=== PATIENT | female | born 1940 | race Caucasian/White ===

== ENCOUNTER 2017-06-23 10:10 | Outpatient (CLI) | payer MEDICARE, OTHER | END 2017-06-23 10:11 | disposition home or self-care (01) | LOC: LAB 10:10 | PROVIDERS: ATTEND Obstetrics & Gynecology | DX: R63.5 Abnormal weight gain (principal) | CPT/HCPCS: 36415; 82626 ==

== ENCOUNTER 2017-07-04 12:00 | Outpatient (CLI) | payer MEDICARE, OTHER ==
[2017-07-04 12:41] LABS: BILIRUBIN,URINE NEGATIVE (NEGATIVE); GLUCOSE, URINE (UA) NEGATIVE (NEGATIVE); KETONES,URINE (UA) TRACE mg/dL (NEGATIVE); LEUKOCYTE ESTERASE, URINE SMALL (NEGATIVE); NITRITE,URINE NEGATIVE (NEGATIVE); OCCULT BLOOD,URINE MODERATE (NEGATIVE); PROTEIN,URINE NEGATIVE (NEGATIVE); UROBILINOGEN,URINE 0.2 (NORMAL) E.U./dL (NORMAL)
[2017-07-04 12:46] LABS: CLARITY,URINE CLOUDY (CLEAR)
== END 2017-07-04 12:01 | disposition home or self-care (01) ==
LOC: LAB 12:00
PROVIDERS: ATTEND Obstetrics & Gynecology
DX: R31.21 Asymptomatic microscopic hematuria (principal)
CPT/HCPCS: 81003

== ENCOUNTER 2017-09-02 14:53 | Outpatient (CLI) | payer MEDICARE, OTHER ==
--- NOTE | 2017-09-05 08:15 | DEXA Report ---
Procedure Date: 09/02/2017 Accession Number: [id number] / [id number] Procedure: DEX - Dexa Spine and/or Hip CPT Code: FULL RESULT: EXAM: Dexa Spine and/or Hip DATE: 09/02/2017 3:17 PM CLINICAL HISTORY: OTHER SPECIFIED MENOPAUSAL AND PERIMENOPAUSAL DISO TECHNIQUE: Dual energy x-ray absorptiometry (DXA) was performed on a Fwd: Power System. Regions measured are the AP Spine, femoral neck, and if needed forearm. COMPARISON: None. In accordance with the International Society for Clinical Densitometry (ISCD) guidelines, data from previous exams may be reanalyzed using current recommendations and techniques. This is done to allow a more accurate basis for comparison with the current study. FINDINGS: The data for the lumbar spine is as follows: BMD (g/cm/cm) T-SCORE Z-SCORE REGION L1 1.190 0.5 2.4 L2 1.262 0.5 2.4 L3 L4 TOTAL 1.227 0.5 2.4 NOTE: All evaluable vertebrae are used for classification. L3 and L4 excluded, due to extensive degenerative endplate sclerosis. The data for the hip is as follows: BMD (g/cm/cm) T-SCORE Z-SCORE REGION Neck 0.950 -0.6 1.4 TOTAL 0.956 -0.4 1.4 NOTE: The femoral neck or total proximal femur, whichever is lowest, is used for classification. IMPRESSION: THE WHO CLASSIFICATION BASED ON THE INTERNATIONAL REFERENCE STANDARD IS NORMAL. THE FRACTURE RISK IS NOT INCREASED. RECOMMENDATION: Patients with diagnosis of osteoporosis or osteopenia should have regular bone mineral density assessment. For those eligible for Medicare, routine testing is allowed once every 2 years. Testing frequency can be increased for patients who have rapidly progressing disease or for those who are receiving medical therapy to restore bone mass. COMMENT: World Health Organization (WHO) definitions for osteoporosis and osteopenia: NORMAL BMD: T-score at -1.0 or higher, fracture risk is low OSTEOPENIA BMD: T-score between -1.0 and -2.5, fracture risk is increased. OSTEOPOROSIS BMD: T-score at -2.5 or lower, fracture risk is high. National Osteoporosis Foundation recommends: 1. Obtain adequate dietary calcium (at least 1200 mg per day) and vitamin D (400-800 international units per day). 2. Participate, as appropriate, in regular weightbearing and muscle-strengthening exercise. 3. Avoid tobacco use and reduce alcohol and caffeine intake. 4. For more detailed information see the website at www.NOF.org.
== END 2017-09-02 14:54 | disposition home or self-care (01) ==
LOC: DI 14:53
PROVIDERS: ATTEND Family Medicine
DX: N95.8 Other specified menopausal and perimenopausal disorders (principal)
CPT/HCPCS: 77080

== ENCOUNTER 2017-11-30 15:22 | Outpatient (CLI) | payer MEDICARE, OTHER ==
--- NOTE | 2017-11-30 17:13 | XRAY Report ---
Reason: RIGHT HAND AND FINDER PAIN S/P FALL, SCOLIOSIS Procedure Date: 11/30/2017 Accession Number: [id number] / [id number] Procedure: XR - Hand 3 View RT CPT Code: FULL RESULT: EXAM: RIGHT HAND RADIOGRAPHY EXAM DATE: 11/30/2017 03:37 PM. CLINICAL HISTORY: Right hand and finder pain status post fall, scoliosis. COMPARISON: None. TECHNIQUE: 3 views. FINDINGS: Bones: There is an amorphous calcific density about the lateral aspect of the fifth proximal interphalangeal joint. While there is no cristal fracture dislocation, this may represent a donor fragment from prior injury. Joints: Degenerative changes are seen about the first through third distal interphalangeal joints. Soft Tissues: Normal. No soft tissue swelling. IMPRESSION: Calcific density with well-rounded borders near the fifth proximal interphalangeal joint may represent a partially resorbed donor fragment. If this corresponds to the patient's area of pain, consider the finding posttraumatic. RADIA
--- NOTE | 2017-11-30 17:13 | XRAY Report ---
Reason: RIGHT HAND AND FINDER PAIN S/P FALL, SCOLIOSIS Procedure Date: 11/30/2017 Accession Number: [id number] / [id number] Procedure: XR - Lumbar Spine 2 View CPT Code: FULL RESULT: EXAM: LUMBOSACRAL SPINE RADIOGRAPHY EXAM DATE: 11/30/2017 03:36 PM. CLINICAL HISTORY: Right hand and finger pain status post fall, scoliosis. COMPARISONS: None. TECHNIQUE: 2 views. FINDINGS: Alignment: Dextroconvex lumbar scoliosis. Bones: Five mid-kwz-zaxrjtk lumbar vertebral bodies are present. No fractures or bone lesions. Disks: Degenerative disk disease follows the curvature of the lumbar spine with disk space reduction predominately on the left side of the vertebral bodies. Facets: Facet degenerative disease is more pronounced in the lower lumbar spine, L4 and L5. Sacroiliac Joints: Unremarkable. Soft Tissues: Normal. The visualized bowel gas pattern is normal. IMPRESSION: At least moderate dextroconvex scoliosis. RADIA
== END 2017-11-30 15:23 | disposition home or self-care (01) ==
LOC: DI 15:22
PROVIDERS: ATTEND Family Medicine
DX: M41.86 Other forms of scoliosis, lumbar region (principal); M79.641 Pain in right hand
CPT/HCPCS: 72100

== ENCOUNTER 2018-04-25 12:24 | Outpatient (CLI) | payer MEDICARE, OTHER ==
[2018-04-25 12:54] LABS: BILIRUBIN,URINE NEGATIVE (NEGATIVE); GLUCOSE, URINE (UA) NEGATIVE (NEGATIVE); KETONES,URINE (UA) NEGATIVE (NEGATIVE); LEUKOCYTE ESTERASE, URINE TRACE (NEGATIVE); NITRITE,URINE NEGATIVE (NEGATIVE); OCCULT BLOOD,URINE NEGATIVE (NEGATIVE); PROTEIN,URINE NEGATIVE (NEGATIVE); UROBILINOGEN,URINE 0.2 (NORMAL) E.U./dL (NORMAL)
[2018-04-25 13:16] LABS: CLARITY,URINE HAZY (CLEAR)
[2018-04-25 13:17] LABS: AMORPHOUS SEDIMENT,UR Few /LPF; BACTERIA,URINE Rare /HPF (None Seen); RBC,URINE 0-5 /HPF (0-5); SQUAMOUS EPITHELIAL CELL,UR RARE Squamous (<= Few)
== END 2018-04-25 12:25 | disposition home or self-care (01) ==
LOC: LAB 12:24
PROVIDERS: ATTEND Family Medicine
DX: N39.0 Urinary tract infection, site not specified (principal)
CPT/HCPCS: 81001

== ENCOUNTER 2018-10-13 21:05 | Outpatient (CLI) | payer MEDICARE, OTHER ==
--- NOTE | 2018-10-13 21:56 | Ultrasound Report ---
Reason: LOWER EXTREMITY EDEMA, LEFT Procedure Date: 10/13/2018 Accession Number: [id number] / [id number] Procedure: US - Duplex Ext Veins Left CPT Code: FULL RESULT: EXAM: LEFT LOWER EXTREMITY VENOUS ULTRASOUND EXAM DATE: 10/13/2018 09:19 PM. CLINICAL HISTORY: Left lower extremity edema COMPARISON: None. TECHNIQUE: Real-time sonographic vascular imaging was performed by the childcare aide through the lower extremity utilizing both color-flow and Doppler spectral analysis. Multiple customer service representative teacher static images were saved for review. FINDINGS: Common Femoral Vein (CFV): Normal. CFV-GSV Junction: Normal. Profunda Femoral Vein (PFV): Normal. Femoral Vein (FV) Prox: Normal. Femoral Vein (FV) Mid: Normal. Femoral Vein (FV) Dist: Normal. Popliteal Vein: Normal. Posterior Tibial Veins: Normal. Peroneal Veins: Normal. Other: None. IMPRESSION: No evidence for deep venous thrombosis. DEL The call report notification system was initiated by Dr. Laura Dale at 09:54 PM on 10/13/2018.
== END 2018-10-13 21:06 | disposition home or self-care (01) ==
LOC: DI 21:05
PROVIDERS: ATTEND Nurse Practitioner Family
DX: R60.0 Localized edema (principal)

== ENCOUNTER 2018-10-14 10:07 | Outpatient (CLI) | payer MEDICARE, OTHER ==
[2018-10-14 10:38] LABS: BASOPHILS % (AUTO) 0.8 %; EOSINOPHILS # (AUTO) 0.1 10^3/uL (0.0-0.7); EOSINOPHILS % (AUTO) 2.4 %; HGB - HEMOGLOBIN 14.1 g/dL (12.0-16.0); LYMPHOCYTES # (AUTO) 1.3 10^3/uL (1.5-3.5); LYMPHOCYTES % (AUTO) 24.2 %; MEAN CORPUSCULAR HEMOGLOBIN 29.7 pg (27.0-31.0); MEAN CORPUSCULAR HGB CONC 32.5 g/dL (32.0-36.0); MEAN CORPUSCULAR VOLUME 91.6 fL (81.0-99.0); MEAN PLATELET VOLUME 10.8 fL (7.9-10.8); MONOCYTES # (AUTO) 0.4 10^3/uL (0.0-1.0); MONOCYTES % (AUTO) 7.5 %; NEUTROPHILS # (AUTO) 3.5 10^3/uL (1.5-6.6); NEUTROPHILS % (AUTO) 64.7 %; PLT - PLATELET COUNT 170 10^3/uL (130-450); RED BLOOD COUNT 4.74 10^6/uL (4.20-5.40); RED CELL DISTRIBUTION WIDTH 12.6 % (12.0-15.0); WHITE BLOOD COUNT 5.3 x10^3/uL (4.8-10.8)
[2018-10-14 10:52] LABS: ALBUMIN 4.3 g/dL (3.2-5.5); ALBUMIN/GLOBULIN RATIO 1.5 (1.0-2.2); ALKALINE PHOSPHATASE 52 IU/L (42-121); ALT ALANINE AMINOTRANSFERASE 19 IU/L (10-60); AST ASPARTATE AMINOTRANSFERASE 19 IU/L (10-42); BILIRUBIN,TOTAL 1.1 mg/dL (0.2-1.0); BUN - BLOOD UREA NITROGEN 16 mg/dL (6-20); CALCIUM 9.8 mg/dL (8.5-10.3); CARBON DIOXIDE - CO2 26 mmol/L (21-32); CHLORIDE 108 mmol/L (101-111); CHOL/HDL RATIO 2.5 (<4.4); CHOLESTEROL 205 mg/dL; CREATININE 0.7 mg/dL (0.4-1.0); GFR - MDRD 81 (>89); GLUCOSE 101 mg/dL (70-100); HDL CHOLESTEROL 83 mg/dL; LDL CHOLESTEROL,CALCULATED 104 mg/dL; LDL/HDL RATIO 1.3 (<4.4); SODIUM 144 mmol/L (135-145); TOTAL PROTEIN 7.2 g/dL (6.7-8.2); VLDL CHOLESTEROL 18 mg/dL
[2018-10-14 10:54] LABS: HB2 TOTAL 14.2 g/dL; HEMOGLOBIN A1C 0.49 g/dL; HEMOGLOBIN A1C % 5.3 % (4.6-6.2)
== END 2018-10-14 10:08 | disposition home or self-care (01) ==
LOC: LAB 10:07
PROVIDERS: ATTEND Nurse Practitioner Family
DX: E78.5 Hyperlipidemia, unspecified (principal); Z13.1 Encounter for screening for diabetes mellitus
CPT/HCPCS: 36415; 80053; 80061; 83036; 83721; 85025

== ENCOUNTER 2019-04-25 16:01 | Outpatient (CLI) | payer MEDICARE, OTHER ==
[2019-04-25 16:37] LABS: BILIRUBIN,URINE NEGATIVE (NEGATIVE); GLUCOSE, URINE (UA) NEGATIVE (NEGATIVE); KETONES,URINE (UA) NEGATIVE (NEGATIVE); LEUKOCYTE ESTERASE, URINE NEGATIVE (NEGATIVE); NITRITE,URINE NEGATIVE (NEGATIVE); OCCULT BLOOD,URINE TRACE-INTA (NEGATIVE); PROTEIN,URINE NEGATIVE (NEGATIVE); UROBILINOGEN,URINE 0.2 (NORMAL) E.U./dL (NORMAL)
[2019-04-25 16:39] LABS: CLARITY,URINE CLEAR (CLEAR)
== END 2019-04-25 16:02 | disposition home or self-care (01) ==
LOC: LAB 16:01
PROVIDERS: ATTEND Student in an Organized Health Care Education/Training Program
DX: N39.0 Urinary tract infection, site not specified (principal); R53.83 Other fatigue; E78.5 Hyperlipidemia, unspecified; R60.0 Localized edema
CPT/HCPCS: 81001; 81003; 87086

== ENCOUNTER 2019-04-30 10:56 | Outpatient (CLI) | payer MEDICARE, OTHER ==
[2019-04-30 11:14] LABS: BILIRUBIN,URINE NEGATIVE (NEGATIVE); GLUCOSE, URINE (UA) NEGATIVE (NEGATIVE); KETONES,URINE (UA) NEGATIVE (NEGATIVE); LEUKOCYTE ESTERASE, URINE TRACE (NEGATIVE); NITRITE,URINE NEGATIVE (NEGATIVE); OCCULT BLOOD,URINE SMALL (NEGATIVE); PH,URINE 6.5 PH (5.0-7.5); PROTEIN,URINE NEGATIVE (NEGATIVE); UROBILINOGEN,URINE 0.2 (NORMAL) E.U./dL (NORMAL)
[2019-04-30 11:22] LABS: BACTERIA,URINE Rare /HPF (None Seen); CLARITY,URINE HAZY (CLEAR); RBC,URINE 0-5 /HPF (0-5); SQUAMOUS EPITHELIAL CELL,UR MOD Squamous (<= Few)
== END 2019-04-30 10:57 | disposition home or self-care (01) ==
LOC: LAB 10:56
PROVIDERS: ATTEND Urology
DX: R31.9 Hematuria, unspecified (principal)
CPT/HCPCS: 81001

== ENCOUNTER 2019-05-12 08:00 | Emergency (ER) | payer MEDICARE, OTHER ==
--- NOTE | 2019-05-12 08:32 | ED Physician Documentation ---
PD HPI SKIN - Stated complaint Stated Complaint: EAR PX - History obtained from History obtained from: Patient - History of Present Illness Timing - onset: How many days ago (3) Timing - duration: Days (3) Timing - details: Gradual onset, Still present Location: Other (ears) Quality / character: Itchy Improved by: Other (abreiva) Associated symptoms: No: Fever, Myalgias, Joint pain, Headache, Facial swelling, Dyspnea, Abd pain, N/V/D, Urinary sx Contributing factors: Exposed to soap / lotion Similar symptoms before: Diagnosis (contact dermatitis) Recently seen: Not recently seen - Additional information Additional information: Previously well 79-year-old female with a prior history of contact dermatitis has washed her hair with a different shampoo and subsequently she has developed some itching around her ears. On the external portion of the ears and she felt that she used Abreva cream and this seemed to help a little with it she has persistence of the itching and she is concerned about what to do about this. She does note that she has recently had a sinus infection that resolved. She had facial pain postnasal drainage cough and sinus congestion all of which has resolved. She has been under a significant amount of stress with her having some issue with esophageal cancer he is now 6 months cancer free on his recent checkup she is markedly relieved with this and is now turning her attention to her own health. She has a plan to have upper endoscopy done this week. She has a history of herpes type I and she has active outbreak on her nose now she is on acyclovir suppression and she has increased her dose of acyclovir from 200 to 400 mg/day. She feels her symptoms are improving. Review of Systems Constitutional: denies: Fever, Chills, Myalgias Eyes: denies: Decreased vision Ears: reports: Ear pain. denies: Loss of hearing, Drainage/discharge, Tinnitus/ringing, Foreign body Nose: denies: Rhinorrhea / runny nose, Congestion Throat: denies: Sore throat Cardiac: denies: Chest pain / pressure, Palpitations Respiratory: denies: Dyspnea, Cough GI: denies: Vomiting : denies: Dysuria Skin: reports: Lesions (to the sides of the nose improving) Musculoskeletal: denies: Neck pain, Back pain, Extremity pain Neurologic: denies: Generalized weakness, Focal weakness, Numbness PD PAST MEDICAL HISTORY - Past Medical History Cardiovascular: High cholesterol - Past Surgical History Past Surgical History: Yes - Present Medications Home Medications: Ambulatory Orders Medication Instructions Recorded Confirmed Simvastatin 0 mg PO HS 04/07/13 09/21/14 Acyclovir 200 mg PO DAILY 08/11/13 09/21/14 Estradiol [Vagifem] 10 mcg VG TID 05/12/19 05/12/19 Multivitamin [Multiple Vitamins] 1 each PO 05/12/19 Valacyclovir HCl [Valacyclovir] 2,000 mg PO BID #8 tablet 05/12/19 - Allergies Allergies/Adverse Reactions: Allergies Allergy/AdvReac Type Severity Reaction Status Date / Time hydrocodone bitartrate * Allergy vomiting Verified 09/21/14 18:33 [From Vicodin] oxycodone Allergy Unknown Verified 05/12/19 08:16 - Social History Does the pt smoke?: No Smoking Status: Never smoker Does the pt drink ETOH?: No Does the pt have substance abuse?: No - Immunizations Immunizations are current?: No Immunizations: TDAP >10years/unknown PD ED PE NORMAL - Vitals Vital signs reviewed: Yes - General General: Alert and oriented X 3, No acute distress, Well developed/nourished - HEENT HEENT: Atraumatic, PERRL, EOMI, Ears normal, Moist mucous membranes, Pharynx benign, Dentition benign, Other (There is minimal erythema to the skin behind both ears. There is no pain associated with push on the pinna or pull on the tragus and the TMs are clear. On either side of the nose on the lateral ala there is mild erythema/swelling consistent with resolving simplex. ) - Neck Neck: Supple, no meningeal sign, No bony TTP - Cardiac Cardiac: RRR, No murmur - Respiratory Respiratory: No respiratory distress, Clear bilaterally - Abdomen Abdomen: Soft, Non tender - Back Back: No CVA TTP, No spinal TTP - Derm Derm: Normal color, Warm and dry, No rash - Extremities Extremities: No deformity, No edema, No calf tenderness / cord - Neuro Neuro: Alert and oriented X 3, air twister winder 2-12 intact, No motor deficit, No sensory deficit, Normal speech Eye Opening: Spontaneous Motor: Obeys Commands Verbal: Oriented GCS Score: 15 - Psych Psych: Normal mood, Normal affect Results - Vitals Vitals: Oxygen O2 Source Room air PD MEDICAL DECISION MAKING - ED course Complexity details: considered differential, d/w patient ED course: 79-year-old female reports to the emergency department with a mild contact dermatitis behind her ears. She also has a current herpes outbreak related to recent stress. We will change her dosing of acyclovir to valacyclovir.I have recommended to the patient that she use some hydrocortisone to her ears. Departure - Departure Disposition: Home, Self Care Clinical Impression: Irritant contact dermatitis, Herpes labialis Instructions: ED Dermatitis Contact, ED Herpes Simplex Virus Type 1 Follow-Up: PETER MONTERROSO MD [Primary Care Provider] - Prescriptions: Valacyclovir HCl [Valacyclovir] 2,000 mg PO BID #8 tablet Comments: use over the counter hydrocortisone 1% cream to the ear. I have written a script for the valacyclovir and the dose should be 2 pills twice in one day. I have written a script for 8 pills. Keep the left over pills in your cabinet and use them immediately for another outbreak.
[2019-05-12 08:43] VITALS: BP 145/86
== END 2019-05-12 08:53 | disposition home or self-care (01) ==
LOC: ED 08:00
DX: L24.9 Irritant contact dermatitis, unspecified cause (principal); B00.1 Herpesviral vesicular dermatitis
CPT/HCPCS: 99282; 99284

== ENCOUNTER 2020-05-28 10:37 | Outpatient (CLI) | payer MEDICARE, OTHER ==
[2020-05-28 11:22] LABS: THYROID STIMULATING HORMONE 1.16 uIU/mL (0.34-5.60)
[2020-05-28 11:24] LABS: FREE T3 2.85 pg/mL (2.5-3.9); FREE T4 (FREE THYROXINE) 1.02 ng/dL (0.58-1.64)
== END 2020-05-28 10:38 | disposition home or self-care (01) ==
LOC: LAB 10:37
PROVIDERS: ATTEND Internal Medicine Endocrinology, Diabetes & Metabolism
DX: E03.9 Hypothyroidism, unspecified (principal)
CPT/HCPCS: 36415; 84439; 84443; 84481; 86376

== ENCOUNTER 2020-09-24 13:54 | Outpatient (CLI) | payer MEDICARE, OTHER ==
--- NOTE | 2020-09-24 16:46 | XRAY Report ---
PROCEDURE: Hips 2V BILAT INDICATIONS: LUMBAR RADICULOPATHY TECHNIQUE: 2 views of the right hip and left hip were acquired. COMPARISON: None FINDINGS: Bones: No fractures or dislocations. No suspicious bony lesions. The visualized pelvic ring appear s intact. Mild bilateral hip osseous hypertrophy and slight joint space narrowing. Severe degenerativ e disc changes noted in the lower lumbar spine. Soft tissues: No suspicious soft tissue calcifications or masses. IMPRESSION: Sgje-ye-culmeezc bilateral hip osseous arthritis. Reviewed by: Valencia Paniagua MD, PhD on 09/24/2020 4:45 PM PDT Approved by: Valencia Paniagua MD, PhD on 09/24/2020 4:45 PM PDT Station ID: [id number]
== END 2020-09-24 13:55 | disposition home or self-care (01) ==
LOC: DI 13:54
PROVIDERS: ATTEND Physical Medicine & Rehabilitation
DX: M16.0 Bilateral primary osteoarthritis of hip (principal)

== ENCOUNTER 2020-09-30 13:57 | Outpatient (CLI) | payer MEDICARE, OTHER ==
--- NOTE | 2020-09-30 15:21 | MRI Report ---
PROCEDURE: Lumbar Spine W/O INDICATIONS: LUMBAR RADICULOPATHY, WEAKNESS IN BOTH HIPS TECHNIQUE: Noncontrast sagittal T1 spin echo and T2 fast echo, sagittal STIR, coronal T2, axial T1 and T2 fast s pin echo through the lumbar spine. COMPARISON: Plain films dated 11/30/2017 FINDINGS: Image quality: Excellent. Alignment and Curvature: 5 lumbar type vertebral bodies are present by plain film. Moderate rightward curvature of the lower lumbar spine mild leftward curvature of the upper lumbar spine. Loss of ana l lumbar lordosis. Mild grade 1 retrolisthesis of L2 on L3, L3 on L4, and L4 on L5. Bone Marrow: Marrow is of normal overall signal. No acute vertebral body compression fractures. Th ere is moderate reactive signal within the end but adjacent to the L2-L3, L3-L4, L4-L5, and L5-S1 int ervertebral discs. Mild reactive signal within the endplates adjacent to the T11-T12, T12-L1, and L1- L2 intervertebral discs. Spinal Cord: Conus medullaris terminates at the lower L2 level. Visualized cord demonstrates normal signal and size. Paraspinous Soft Tissues: No paravertebral masses. There is moderate left hydronephrosis versus par apelvic left renal cysts. T12-L1: Mild disc desiccation. Mild facet and ligament flavum hypertrophy. No significant canal, nor foraminal stenosis. L1-L2: Mild disc height loss and desiccation. Mild diffuse disc bulge. Mild facet and ligament fla vum hypertrophy. Mild canal stenosis. No foraminal stenosis. L2-L3: Moderate disc height loss and desiccation. Mild diffuse disc bulge. Mild facet and ligament flavum hypertrophy. Mild canal stenosis. Mild bilateral foraminal stenosis. L3-L4: Severe disc height loss and desiccation. Mild diffuse disc bulge/osteophyte. Mild facet and ligament flavum hypertrophy. Mild canal stenosis. Moderate left and mild right foraminal stenosis. L4-L5: Severe disc height loss and desiccation. Mild diffuse disc bulge. Mild facet and ligament fl avum hypertrophy. Moderate canal stenosis. Moderate bilateral foraminal stenosis. L5-S1: Severe disc height loss and desiccation. Mild diffuse disc bulge. Mild facet and ligament fl avum hypertrophy. Mild canal stenosis. Severe right and moderate left foraminal stenosis. Right L5 ne rve root compression. IMPRESSION: 1. Multilevel degenerative disc and facet disease, in addition to epidural lipomatosis and ligamentum flavum hypertrophy. 2. Multilevel canal stenoses, worst at L4-L5, where there is moderate canal stenosis. 3. Multilevel foraminal stenoses, worst at L5-S1 on the right where there is associated intraforamina l nerve root compression. Recommend correlation with clinical symptoms to ascertain relevance of this finding. 4. Left renal parapelvic cysts versus hydronephrosis. Initial further assessment with ultrasound is r ecommended. Reviewed by: Brittany Diggs MD on 09/30/2020 2:20 PM EMILY Approved by: Brittany Diggs MD on 09/30/2020 2:20 PM EMILY Station ID: [id number]
== END 2020-09-30 13:58 | disposition home or self-care (01) ==
LOC: DI 13:57
PROVIDERS: ATTEND Physical Medicine & Rehabilitation
DX: R93.5 Abnormal findings on diagnostic imaging of other abdominal regions, including retroperitoneum (principal); M47.815 Spondylosis without myelopathy or radiculopathy, thoracolumbar region; M51.35 Other intervertebral disc degeneration, thoracolumbar region; M48.05 Spinal stenosis, thoracolumbar region; M47.816 Spondylosis without myelopathy or radiculopathy, lumbar region; M51.36 Other intervertebral disc degeneration, lumbar region; M48.061 Spinal stenosis, lumbar region without neurogenic claudication; M47.817 Spondylosis without myelopathy or radiculopathy, lumbosacral region; M51.37 Other intervertebral disc degeneration, lumbosacral region; M48.07 Spinal stenosis, lumbosacral region

== ENCOUNTER 2020-10-06 09:31 | Outpatient (CLI) | payer MEDICARE, OTHER ==
[2020-10-06 10:14] LABS: BASOPHILS # (AUTO) 0.1 10^3/uL (0.0-0.1); BASOPHILS % (AUTO) 0.5 %; EOSINOPHILS # (AUTO) 0.1 10^3/uL (0.0-0.7); EOSINOPHILS % (AUTO) 0.8 %; HCT - HEMATOCRIT 40.8 % (37.0-47.0); HGB - HEMOGLOBIN 12.6 g/dL (12.0-16.0); LYMPHOCYTES # (AUTO) 1.3 10^3/uL (1.5-3.5); LYMPHOCYTES % (AUTO) 14.2 %; MEAN CORPUSCULAR HEMOGLOBIN 27.8 pg (27.0-31.0); MEAN CORPUSCULAR HGB CONC 30.9 g/dL (32.0-36.0); MEAN CORPUSCULAR VOLUME 89.9 fL (81.0-99.0); MONOCYTES # (AUTO) 0.8 10^3/uL (0.0-1.0); MONOCYTES % (AUTO) 8.8 %; NEUTROPHILS % (AUTO) 75.4 %; PLT - PLATELET COUNT 289 10^3/uL (130-450); RED BLOOD COUNT 4.54 10^6/uL (4.20-5.40); RED CELL DISTRIBUTION WIDTH 12.3 % (12.0-15.0); WHITE BLOOD COUNT 9.3 x10^3/uL (4.8-10.8)
[2020-10-06 10:33] LABS: ALBUMIN 3.9 g/dL (3.2-5.5); ALBUMIN/GLOBULIN RATIO 1.2 (1.0-2.2); ALKALINE PHOSPHATASE 64 IU/L (42-121); ALT ALANINE AMINOTRANSFERASE 16 IU/L (10-60); AST ASPARTATE AMINOTRANSFERASE 17 IU/L (10-42); BILIRUBIN,TOTAL 0.6 mg/dL (0.2-1.0); BUN - BLOOD UREA NITROGEN 13 mg/dL (6-20); CALCIUM 9.4 mg/dL (8.5-10.3); CARBON DIOXIDE - CO2 28 mmol/L (21-32); CHLORIDE 101 mmol/L (101-111); CHOL/HDL RATIO 2.5 (<4.4); CHOLESTEROL 166 mg/dL; CREATININE 0.7 mg/dL (0.4-1.0); GFR - MDRD 81 (>89); GLUCOSE 99 mg/dL (70-100); HDL CHOLESTEROL 66 mg/dL; LDL CHOLESTEROL,CALCULATED 88 mg/dL; LDL/HDL RATIO 1.3 (<4.4); POTASSIUM 3.9 mmol/L (3.5-5.0); SODIUM 139 mmol/L (135-145); TOTAL PROTEIN 7.2 g/dL (6.7-8.2); TRIGLYCERIDES 60 mg/dL; VLDL CHOLESTEROL 12 mg/dL
[2020-10-06 12:55] LABS: ESTIMATED AVERAGE GLUCOSE 108 mg/dL (70-100); HEMOGLOBIN A1c% 5.4 % (4.27-6.07)
== END 2020-10-06 09:32 | disposition home or self-care (01) ==
LOC: LAB 09:31
PROVIDERS: ATTEND Student in an Organized Health Care Education/Training Program
DX: Z00.00 Encounter for general adult medical examination without abnormal findings (principal); R53.83 Other fatigue; Z79.899 Other long term (current) drug therapy; E78.5 Hyperlipidemia, unspecified; E03.9 Hypothyroidism, unspecified
CPT/HCPCS: 36415; 80053; 80061; 82306; 83036; 83721; 84443; 85025

== ENCOUNTER 2020-10-24 13:01 | Outpatient (CLI) | payer MEDICARE, OTHER ==
--- NOTE | 2020-10-24 16:53 | DEXA Report ---
PROCEDURE: Dexa Spine and/or Hip INDICATIONS: POST MENOPAUSAL TECHNIQUE: Dual energy x-ray absorptiometry (DXA) was performed on a [employer] System. Regions measur ed are the AP Spine, femoral neck, and if needed forearm. COMPARISON: Prior similar studies 09/02/2017 FINDINGS: Lumbar Spine: Bone Mineral Density 1.411 g/cm/cm,T score 1.9, normal, and this represents a statistically insign ificant reduction in bone mineral density of 1.7% from the comparison study in 2018. Left Hip: Bone Mineral Density 0.912 g/cm/cm,T score -0.8, normal, and this represents a statistically signifi cant reduction in bone mineral density of 4.6% with reference to the prior study from 2018. Left Femoral Neck: Bone Mineral Density 0.924 g/cm/cm, T score -0.8, normal (T score greater or equal to -1.0: NORMAL) (T score from -1.1 to -2.4: OSTEOPENIA) (T score less than or equal to -2.5 to: OSTEOPOROSIS) Impression: There has been a reduction of bone mineral density at the lumbosacral spine overall which is not statistically significant but at the left hip overall there has been a statistically signific ant reduction of bone mineral density of 4.6% when compared to the prior study from 2018. Patients with diagnosis of osteoporosis or osteopenia should have regular bone mineral density assess ment. For those eligible for Medicare, routine testing is allowed once every 2 years. Testing frequ ency can be increased for patients who have rapidly progressing disease or for those who are receivin g medical therapy to restore bone mass. Reviewed by: Amado Lugo MD on 10/24/2020 4:52 PM PDT Approved by: Amado Lugo MD on 10/24/2020 4:52 PM PDT Station ID: [id number]
== END 2020-10-24 13:02 | disposition home or self-care (01) ==
LOC: DI 13:01
PROVIDERS: ATTEND Specialist
DX: Z78.0 Asymptomatic menopausal state (principal)

== ENCOUNTER 2020-11-01 16:37 | Outpatient (CLI) | payer MEDICARE, OTHER ==
--- NOTE | 2020-11-01 17:54 | Ultrasound Report ---
PROCEDURE: Retroperitoneal INDICATIONS: RENAL CYST TECHNIQUE: Real-time scanning was performed of the retroperitoneal organs, with image documentation. COMPARISON: None. FINDINGS: Kidneys: Kidneys are normal in size. Right kidney measures 11.0 cm long; left kidney measures 10.6 cm long. Right renal cortical thickness is 1.0 cm; left renal cortical thickness is 1.2 cm. No mohini d masses or hydronephrosis. 6 x 4 mm focus of increased echogenicity in the left renal midpole. 0.5 c m simple right renal sinus cysts. Multiple left renal sinus cysts measuring up to 2.3 cm in diameter. Prevoid bladder volume of 390 cc. No significant postvoid residuals. Ureteral jets visualized bilater ally. IMPRESSION: Bilateral renal sinus cysts without suspicious features. A 6 mm focus of increased echogenicity in the left mid kidney could represent a nonobstructing stone. Reviewed by: Dawood Raza on 11/01/2020 4:52 PM EMILY Approved by: Dawood Raza on 11/01/2020 4:52 PM EMILY Station ID: [id number]
== END 2020-11-01 16:38 | disposition home or self-care (01) ==
LOC: DI 16:37
PROVIDERS: ATTEND Student in an Organized Health Care Education/Training Program
DX: N28.1 Cyst of kidney, acquired (principal); R93.422 Abnormal radiologic findings on diagnostic imaging of left kidney

== ENCOUNTER 2020-11-17 16:48 | Outpatient (CLI) | payer MEDICARE, OTHER | END 2020-11-17 16:49 | disposition home or self-care (01) | LOC: COV 16:48 | PROVIDERS: ATTEND Family Medicine | DX: U07.1 COVID-19 (principal) ==

== ENCOUNTER 2020-12-04 09:52 | Outpatient (CLI) | payer MEDICARE, OTHER ==
[2020-12-04 10:33] LABS: ALBUMIN 3.8 g/dL (3.2-5.5); ALBUMIN/GLOBULIN RATIO 1.1 (1.0-2.2); BILIRUBIN,TOTAL 0.7 mg/dL (0.2-1.0); CALCIUM 9.2 mg/dL (8.5-10.3); CREATININE 0.5 mg/dL (0.4-1.0); POTASSIUM 4.1 mmol/L (3.5-5.0); TOTAL PROTEIN 7.3 g/dL (6.7-8.2)
[2020-12-04 10:51] LABS: THYROID STIMULATING HORMONE 2.15 uIU/mL (0.34-5.60)
[2020-12-04 10:52] LABS: FREE T3 2.73 pg/mL (2.5-3.9)
[2020-12-04 10:53] LABS: FREE T4 (FREE THYROXINE) 0.96 ng/dL (0.58-1.64)
== END 2020-12-04 09:53 | disposition home or self-care (01) ==
LOC: LAB 09:52
PROVIDERS: ATTEND Internal Medicine Endocrinology, Diabetes & Metabolism
DX: E03.9 Hypothyroidism, unspecified (principal)
CPT/HCPCS: 36415; 80053; 84439; 84443; 84481

== ENCOUNTER 2020-12-06 10:50 | Outpatient (CLI) | payer MEDICARE, OTHER ==
--- NOTE | 2020-12-06 18:06 | XRAY Report ---
PROCEDURE: Cervical Spine 2 View INDICATIONS: ARTHRITIS TECHNIQUE: 3 view(s) of the cervical spine were acquired. COMPARISON: None. FINDINGS: Bones: No fractures or dislocations to the T1 level. The lateral masses of C1 appear intact on the odontoid view. No suspicious bony lesions. There is reversal of normal cervical lordosis noted. Disc space narrowing, anterior osteophytes and facet arthropathy noted from C4-5 through C7-T1. Soft tissues: No prevertebral soft tissue swelling. IMPRESSION: Reversal of normal cervical lordosis may related to muscle spasm or positioning Lower cervical spine degenerative disc disease and arthropathy Reviewed by: Devan Jaime MD on 12/06/2020 5:05 PM EMILY Approved by: Devan Jaime MD on 12/06/2020 5:05 PM EMILY Station ID: [id number]
== END 2020-12-06 10:51 | disposition home or self-care (01) ==
LOC: DI 10:50
PROVIDERS: ATTEND Family Medicine
DX: M50.321 Other cervical disc degeneration at C4-C5 level (principal); M47.812 Spondylosis without myelopathy or radiculopathy, cervical region

== ENCOUNTER 2020-12-19 12:43 | Outpatient (CLI) | payer MEDICARE, OTHER | END 2020-12-19 12:44 | disposition home or self-care (01) | LOC: COV 12:43 | PROVIDERS: ATTEND Student in an Organized Health Care Education/Training Program | DX: U07.1 COVID-19 (principal) ==

== ENCOUNTER 2021-01-08 13:38 | Outpatient (CLI) | payer MEDICARE, OTHER ==
--- NOTE | 2021-01-08 15:43 | MRI Report ---
PROCEDURE: Cervical Spine W/O INDICATIONS: CERVICAL MYLEOPATHY TECHNIQUE: Noncontrast sagittal T1 spin echo and T2 fast spin echo, sagittal STIR, foraminal oblique sagittal T2 fast spin echo, and axial gradient echo or T2 fast spin echo through the cervical spine. COMPARISON: None. FINDINGS: Image quality: Excellent. Alignment and Curvature: Straightening of the normal lordotic curvature. Grade 1 retrolisthesis of C 5 on C6 and C6 on C7. Bone Marrow: No acute fracture. Multilevel endplate degenerative sclerosis and spurring. Diffuse fa cet arthropathy. Spinal Cord: Visualized spinal cord has normal size and signal. No cerebellar tonsillar herniation. Paraspinous Soft Tissues: No paravertebral masses. Prevertebral soft tissues are normal in thicknes s. C2-C3: No canal stenosis. Mild bilateral foraminal narrowing C3-C4: Mild canal narrowing. Mild bilateral foraminal stenoses. C4-C5: Mild canal narrowing. Mild right and moderate left foraminal stenosis. There is slight nerve root compression on the left. C5-C6: Moderate canal narrowing. Moderate right foraminal stenosis. Severe left foraminal stenosis w ith nerve root compression. C6-C7: Moderate canal narrowing with effacement of the anterior and posterior thecal sac. Severe rig ht and left foraminal stenoses with nerve root compression C7-T1: No canal stenosis. Mild left foraminal narrowing. No right foraminal stenosis. IMPRESSION: Multilevel cervical spondylosis as above, with moderate C5-C6 and C6-7 canal narrowing. Diffuse bilateral foraminal stenoses, most pronounced on the left at C4-C5, C5-C6 and C6-C7 as detail ed above. Reviewed by: Michael Fall MD on 01/08/2021 3:41 PM PDT Approved by: Michael Fall MD on 01/08/2021 3:41 PM PDT Station ID: [id number]
== END 2021-01-08 13:39 | disposition home or self-care (01) ==
LOC: DI 13:38
PROVIDERS: ATTEND Physical Medicine & Rehabilitation
DX: M47.12 Other spondylosis with myelopathy, cervical region (principal); M48.02 Spinal stenosis, cervical region

== ENCOUNTER 2021-07-24 16:54 | Outpatient (CLI) | payer MEDICARE, OTHER ==
--- NOTE | 2021-07-24 20:14 | Ultrasound Report ---
PROCEDURE: Ext Limited Non Vascular INDICATIONS: MASS OF SUBCUTANEOUS TISSUE, LEFT UPPER ARM TECHNIQUE: Real-time scanning was performed of the left upper extremity with image documentation. COMPARISON: None. FINDINGS: Ultrasound evaluation in the area of concern in the anterior aspect of the left upper arm demonstrate s a small oval hyperechoic subcutaneous lesion with indistinct margins measuring approximately 0.4 x 0.3 x 0.4 cm. No internal vascularity on color Doppler interrogation. Lateral to the humeral head within the proximal left upper extremity, there is a subcutaneous oval hy poechoic mass lesion measuring approximately 2.2 x 0.9 x 1.7 cm. There are heterogeneous internal ech oes with septations. There is posterior acoustic enhancement. No internal vascularity on color Dopple r interrogation. IMPRESSION: 1. Small oval subcutaneous hyperechoic lesion demonstrated in the area of clinical concern. The diffe rential includes a small lipoma or fat necrosis among other etiologies. Recommend clinical follow-up and a repeat ultrasound in 6 months to demonstrate stability or resolution if indicated. 2. Oval hypoechoic subcutaneous septated mass lesion demonstrated lateral to the humeral head suggest gorge of a complex cyst such as a ganglion cyst, bursal collection, or resolving hematoma. However, a n eoplasm cannot be excluded. Recommend further evaluation with MRI if clinically indicated. Reviewed by: Albert Gallardo MD on 07/24/2021 8:13 PM PDT Approved by: Albert Gallardo MD on 07/24/2021 8:13 PM PDT Station ID: [id number]
== END 2021-07-24 16:55 | disposition home or self-care (01) ==
LOC: DI 16:54
PROVIDERS: ATTEND Physician Assistant
DX: R93.6 Abnormal findings on diagnostic imaging of limbs (principal); R93.89 Abnormal findings on diagnostic imaging of other specified body structures

== ENCOUNTER 2021-08-04 12:54 | Outpatient (CLI) | payer MEDICARE, OTHER ==
[2021-08-04 13:12] LABS: BASOPHILS # (AUTO) 0.1 10^3/uL (0.0-0.1); BASOPHILS % (AUTO) 0.6 %; EOSINOPHILS # (AUTO) 0.1 10^3/uL (0.0-0.7); EOSINOPHILS % (AUTO) 1.4 %; HCT - HEMATOCRIT 47.1 % (37.0-47.0); LYMPHOCYTES # (AUTO) 1.8 10^3/uL (1.5-3.5); LYMPHOCYTES % (AUTO) 21.6 %; MEAN CORPUSCULAR HEMOGLOBIN 29.4 pg (27.0-31.0); MEAN CORPUSCULAR HGB CONC 31.8 g/dL (32.0-36.0); MEAN CORPUSCULAR VOLUME 92.2 fL (81.0-99.0); MEAN PLATELET VOLUME 10.7 fL (7.9-10.8); MONOCYTES # (AUTO) 0.6 10^3/uL (0.0-1.0); MONOCYTES % (AUTO) 6.6 %; NEUTROPHILS # (AUTO) 5.9 10^3/uL (1.5-6.6); NEUTROPHILS % (AUTO) 69.6 %; PLT - PLATELET COUNT 198 10^3/uL (130-450); RED BLOOD COUNT 5.11 10^6/uL (4.20-5.40); RED CELL DISTRIBUTION WIDTH 13.2 % (12.0-15.0); WHITE BLOOD COUNT 8.4 x10^3/uL (4.8-10.8)
[2021-08-04 13:15] LABS: BILIRUBIN,URINE NEGATIVE (NEGATIVE); GLUCOSE, URINE (UA) NEGATIVE (NEGATIVE); KETONES,URINE (UA) TRACE mg/dL (NEGATIVE); LEUKOCYTE ESTERASE, URINE NEGATIVE (NEGATIVE); NITRITE,URINE NEGATIVE (NEGATIVE); OCCULT BLOOD,URINE SMALL (NEGATIVE); PROTEIN,URINE NEGATIVE (NEGATIVE); UROBILINOGEN,URINE 0.2 (NORMAL) E.U./dL (NORMAL)
[2021-08-04 13:23] LABS: BACTERIA,URINE None Seen /HPF (None Seen); CLARITY,URINE CLEAR (CLEAR); RBC,URINE 0-5 /HPF (0-5); SQUAMOUS EPITHELIAL CELL,UR FEW Squamous (<= Few); WBC,URINE 0-3 /HPF (0-5)
[2021-08-04 13:31] LABS: ALBUMIN 4.5 g/dL (3.2-5.5); ALBUMIN/GLOBULIN RATIO 1.6 (1.0-2.2); ALKALINE PHOSPHATASE 48 IU/L (42-121); ALT ALANINE AMINOTRANSFERASE 23 IU/L (10-60); AST ASPARTATE AMINOTRANSFERASE 22 IU/L (10-42); BILIRUBIN,TOTAL 0.9 mg/dL (0.2-1.0); BUN - BLOOD UREA NITROGEN 20 mg/dL (6-20); CALCIUM 9.7 mg/dL (8.5-10.3); CARBON DIOXIDE - CO2 28 mmol/L (21-32); CHLORIDE 101 mmol/L (101-111); CHOLESTEROL 210 mg/dL; CREATININE 0.7 mg/dL (0.4-1.0); GFR - MDRD 81 (>89); GLUCOSE 91 mg/dL (70-100); HDL CHOLESTEROL 105 mg/dL; LDL CHOLESTEROL,CALCULATED 92 mg/dL; LDL/HDL RATIO 0.9 (<4.4); POTASSIUM 3.9 mmol/L (3.5-5.0); SODIUM 139 mmol/L (135-145); TOTAL PROTEIN 7.4 g/dL (6.7-8.2); TRIGLYCERIDES 67 mg/dL; VLDL CHOLESTEROL 13 mg/dL
[2021-08-04 13:41] LABS: THYROID STIMULATING HORMONE 1.9 uIU/mL (0.34-5.60)
== END 2021-08-04 12:55 | disposition home or self-care (01) ==
LOC: LAB 12:54
PROVIDERS: ATTEND Student in an Organized Health Care Education/Training Program
DX: E03.9 Hypothyroidism, unspecified (principal); N28.1 Cyst of kidney, acquired; R31.21 Asymptomatic microscopic hematuria; E78.5 Hyperlipidemia, unspecified
CPT/HCPCS: 36415; 80053; 80061; 81001; 83721; 84443; 85025; 87086

== ENCOUNTER 2021-09-21 15:08 | Outpatient (CLI) | payer SELFPAY | END 2021-09-21 15:09 | disposition home or self-care (01) | LOC: CAM 15:08 | PROVIDERS: ATTEND Family Medicine | DX: M54.50 Low back pain, unspecified (principal) | CPT/HCPCS: 97810; 97811 ==

== ENCOUNTER 2021-10-05 15:44 | Outpatient (CLI) | payer SELFPAY | END 2021-10-05 15:45 | disposition home or self-care (01) | LOC: CAM 15:44 | PROVIDERS: ATTEND Family Medicine | DX: M54.50 Low back pain, unspecified (principal) | CPT/HCPCS: 97813; 97814 ==

== ENCOUNTER 2021-11-30 14:37 | Outpatient (CLI) | payer SELFPAY | END 2021-11-30 14:38 | disposition home or self-care (01) | LOC: CAM 14:37 | PROVIDERS: ATTEND Family Medicine | DX: M54.50 Low back pain, unspecified (principal) | CPT/HCPCS: 97813; 97814 ==

== ENCOUNTER 2022-03-18 08:55 | Emergency (ER) | payer MEDICARE, OTHER ==
[2022-03-18 09:45] LABS: BASOPHILS % (AUTO) 0.7 %; EOSINOPHILS # (AUTO) 0.1 10^3/uL (0.0-0.7); EOSINOPHILS % (AUTO) 1.9 %; HCT - HEMATOCRIT 45.1 % (37.0-47.0); HGB - HEMOGLOBIN 14.2 g/dL (12.0-16.0); LYMPHOCYTES % (AUTO) 17.9 %; MEAN CORPUSCULAR HEMOGLOBIN 28.6 pg (27.0-31.0); MEAN CORPUSCULAR HGB CONC 31.5 g/dL (32.0-36.0); MEAN CORPUSCULAR VOLUME 90.9 fL (81.0-99.0); MEAN PLATELET VOLUME 10.6 fL (7.9-10.8); MONOCYTES # (AUTO) 0.4 10^3/uL (0.0-1.0); MONOCYTES % (AUTO) 7.4 %; NEUTROPHILS # (AUTO) 3.9 10^3/uL (1.5-6.6); NEUTROPHILS % (AUTO) 71.9 %; PLT - PLATELET COUNT 160 10^3/uL (130-450); RED BLOOD COUNT 4.96 10^6/uL (4.20-5.40); RED CELL DISTRIBUTION WIDTH 13.6 % (12.0-15.0); WHITE BLOOD COUNT 5.4 x10^3/uL (4.8-10.8)
--- NOTE | 2022-03-18 10:00 | XRAY Report ---
PROCEDURE: Chest 1 View X-Ray INDICATIONS: Chest pain TECHNIQUE: One view of the chest was acquired. COMPARISON: None. FINDINGS: Surgical changes and devices: None. Lungs and pleura: No pleural effusions or pneumothorax. Lungs are clear. Mediastinum: Mediastinal contours appear normal. Heart size is normal. Bones and chest wall: No suspicious bony lesions. Overlying soft tissues appear unremarkable. IMPRESSION: No acute cardiopulmonary disease. Reviewed by: Tosha Gamez MD on 03/18/2022 9:59 AM [facility] Approved by: Tosha Gamez MD on 03/18/2022 9:59 AM [facility] Station ID: [id number]
[2022-03-18 10:02] LABS: ALBUMIN 4.4 g/dL (3.2-5.5); ALBUMIN/GLOBULIN RATIO 1.7 (1.0-2.2); BILIRUBIN,TOTAL 0.8 mg/dL (0.2-1.0); CALCIUM 9.1 mg/dL (8.5-10.3); CREATININE 0.7 mg/dL (0.4-1.0); POTASSIUM 3.9 mmol/L (3.5-5.0)
[2022-03-18 10:38] VITALS: BP 157/71
--- NOTE | 2022-03-18 10:40 | ED Physician Documentation ---
PD HPI CHEST PAIN - Stated complaint Stated Complaint: IRREGULAR HR - Chief complaint Chief Complaint: Cardiac - History obtained from History obtained from: Patient - Additional information Additional information: The patient comes to the emergency department chief complaint of fast heartbeat this morning. She states that she had just been doing her PT exercises and felt little bit of palpitations in her chest. She states the exercises were not strenuous and did not involve any sort of cardio work. She put on her 's old heart rate and blood pressure monitor and found that her heart rate was in the 140s. Patient states that this was a single reading and not an ongoing, real-time reading. She checked it again a couple of minutes later and the reading showed heart rate in the 90s. The patient states she did not feel lightheaded or short of breath. No nausea or chest pain. She has been little more tired than usual lately but is very active. She states that she only takes some herbal supplements as far as medications. She has no history of cardiac disorder. She denies any other complaints at this time. Review of Systems Constitutional: reports: Reviewed and negative Eyes: reports: Reviewed and negative Ears: reports: Reviewed and negative Nose: reports: Reviewed and negative Throat: reports: Reviewed and negative Cardiac: reports: Palpitations Respiratory: reports: Reviewed and negative GI: reports: Reviewed and negative : reports: Reviewed and negative Skin: reports: Reviewed and negative Musculoskeletal: reports: Reviewed and negative Neurologic: reports: Reviewed and negative Psychiatric: reports: Reviewed and negative Endocrine: reports: Reviewed and negative Immunocompromised: reports: Reviewed and negative PD PAST MEDICAL HISTORY - Past Medical History Cardiovascular: High cholesterol - Past Surgical History Past Surgical History: Yes - Present Medications Home Medications: Ambulatory Orders Medication Instructions Recorded Confirmed Simvastatin 0 mg PO HS 04/07/13 09/21/14 Acyclovir 200 mg PO DAILY 08/11/13 09/21/14 Estradiol [Vagifem] 10 mcg VG TID 05/12/19 05/12/19 Multivitamin [Multiple Vitamins] 1 each PO 05/12/19 Valacyclovir HCl [Valacyclovir] 2,000 mg PO BID #8 tablet 05/12/19 - Allergies Allergies/Adverse Reactions: Allergies Allergy/AdvReac Type Severity Reaction Status Date / Time hydrocodone bitartrate * Allergy vomiting Verified 09/21/14 18:33 [From Vicodin] oxycodone Allergy Unknown Verified 05/12/19 08:16 - Social History Does the pt smoke?: No Smoking Status: Never smoker Does the pt drink ETOH?: No Does the pt have substance abuse?: No - Immunizations Immunizations are current?: No Immunizations: TDAP >10years/unknown PD ED PE NORMAL - Vitals Vital signs reviewed: Yes - General General: Alert and oriented X 3, No acute distress, Well developed/nourished - HEENT HEENT: Atraumatic, PERRL, EOMI, Moist mucous membranes - Neck Neck: Supple, no meningeal sign - Cardiac Cardiac: RRR, No murmur - Respiratory Respiratory: No respiratory distress, Clear bilaterally - Abdomen Abdomen: Soft, Non tender, Non distended - Derm Derm: Normal color, Warm and dry, No rash - Extremities Extremities: No deformity, No edema - Neuro Neuro: Alert and oriented X 3 - Psych Psych: Normal mood, Normal affect Results - Vitals Vitals: Vital Signs - 24 hr 03/18/22 03/18/22 03/18/22 09:06 10:11 10:30 Temperature 37.2 C Heart Rate 102 H 66 70 Respiratory 17 19 14 Rate Blood Pressure 155/80 H 128/80 157/71 H O2 Saturation 100 100 96 Oxygen O2 Source Room air - EKG (time done) 0913 Rate: Rate (enter#) (63) Rhythm: NSR [place]: Normal Intervals: Normal [place] QRS: Normal Ischemia: Normal ST segments Compare to prior EKG: Old EKG unavailable Computer interpretation: Agree with computer - Labs Labs: Laboratory Tests 03/18/22 03/18/22 03/18/22 09:29 09:29 09:29 WBC 5.4 RBC 4.96 Hgb 14.2 Hct 45.1 MCV 90.9 MCH 28.6 MCHC 31.5 L RDW 13.6 Plt Count 160 MPV 10.6 Neut # (Auto) 3.9 Lymph # (Auto) 1.0 L [place] # (Auto) 0.4 Eos # (Auto) 0.1 Baso # (Auto) 0.0 Absolute Nucleated RBC 0.00 Nucleated RBC % 0.0 Sodium 137 Potassium 3.9 Chloride 100 L Carbon Dioxide 28 Anion Gap 9.0 BUN 19 Creatinine 0.7 Estimated GFR (MDRD) 81 L Glucose 98 Calcium 9.1 Total Bilirubin 0.8 AST 20 ALT 19 Alkaline Phosphatase 53 Troponin I High Sens < 2.3 L Total Protein 7.0 Albumin 4.4 Globulin 2.6 Albumin/Globulin Ratio 1.7 Lipase 34 PD Medical Decision Making - ED course Complexity details: reviewed results, re-evaluated patient, considered differential, d/w patient ED course: The patient was extremely well-appearing in the emergency department, and had c ompletely normal vital signs, EKG, and cardiac rhythm. Her labs were unremarkable, as. I discussed with her that there is no evidence of anything other than a sinus rhythm here in the emergency department. I cannot account for the single elevated reading that the patient got, and I am not sure what was going on when she felt the palpitations, though she may have had a transient tachycardia of some sort. I have advised her to make the next possible appointment with her primary care physician to discuss event monitoring and if this becomes a recurrent issue, possibly cardiology referral. At this point in time, however, the patient stable for discharge home. Departure - Departure Disposition: 01 Home, Self Care Clinical Impression: Palpitations with regular cardiac rhythm Condition: Stable Instructions: ED Palpitations Comments: Your labs and EKG look great today. It is not clear exactly what caused the elevated heart rate reading on your monitor. It is possible that you had a brief episode of a fast heart rhythm that resolved on its own. It is also possible that your monitor picked up some artifact from motion that was not due to your heart and counted this as heartbeats, as well. One way to help sort all this out and see if there is a real problem is to speak with your primary care doctor about having An event monitor placed for a certain amount of time to see if you are having any unusual rhythms or any episodes of an abnormal heart rate. This can help troubleshoot what is going on. From there, they can sort out whether you need to see a health science instructor or be on medication. For now, please av oid any substances which can cause palpitations or a faster heartbeat, such as caffeine or other stimulants. If you feel that the new teeth that you got may be contributing, then it is probably best to avoid that. Please schedule the next available appointment with your primary doctor to follow-up on these issues. There is no evidence of atrial fibrillation today and you are in a normal heart rhythm and rate. Discharge Date/Time: 03/18/22 10:52
== END 2022-03-18 10:52 | disposition home or self-care (01) ==
LOC: ED 08:55
DX: R00.2 Palpitations (principal); E78.00 Pure hypercholesterolemia, unspecified
CPT/HCPCS: 36415; 80053; 83690; 84484; 85025; 93005; 99283; 99284

== ENCOUNTER 2022-04-17 08:00 | Outpatient (CLI) | payer MEDICARE, OTHER | END 2022-04-17 23:59 | disposition home or self-care (01) | LOC: LAB 08:00 | PROVIDERS: ATTEND Registered Nurse | DX: R19.7 Diarrhea, unspecified (principal) | CPT/HCPCS: 87329 ==

== ENCOUNTER 2022-05-12 12:31 | Outpatient (CLI) | payer MEDICARE, OTHER ==
--- NOTE | 2022-05-12 19:30 | Ultrasound Report ---
PROCEDURE: Ext Limited Non Vascular INDICATIONS: HEMATOMA TECHNIQUE: Real-time scanning was performed of the left upper arm, with image documentation. COMPARISON: None. FINDINGS: Circumscribed hypoechoic lesion is again seen in the region of the deltoid muscle measurin g approximately 2.7 x 1.5 x 2.2 cm. Internal septations and heterogeneous echo are again seen. No def inite internal blood flow. Previously this lesion measured 2.2 x 0.9 x 1.7 cm on the ultrasound from 07/24/2021. Posterior acoustic enhancement is noted. IMPRESSION: Heterogeneous hypointense 2.7 cm mass lesion in the region of the left deltoid muscle tejada s increased in size when compared to the ultrasound from 07/24/2021. Recommend MRI with and without co ntrast for further evaluation to exclude a solid neoplasm. Reviewed by: Rafael Santos MD on 05/12/2022 7:29 PM PST Approved by: Rafael Santos MD on 05/12/2022 7:29 PM PST Station ID: [id number]
== END 2022-05-12 12:32 | disposition home or self-care (01) ==
LOC: DI 12:31
PROVIDERS: ATTEND Internal Medicine
DX: M62.9 Disorder of muscle, unspecified (principal); T14.8XXA Other injury of unspecified body region, initial encounter

== ENCOUNTER 2022-08-20 10:29 | Outpatient (CLI) | payer MEDICARE, OTHER ==
[2022-08-20 10:59] LABS: CHOL/HDL RATIO 1.8 (<4.4); CHOLESTEROL 198 mg/dL; HDL CHOLESTEROL 112 mg/dL; TRIGLYCERIDES 36 mg/dL
== END 2022-08-20 10:30 | disposition home or self-care (01) ==
LOC: LAB 10:29
PROVIDERS: ATTEND Internal Medicine Cardiovascular Disease
DX: R07.9 Chest pain, unspecified (principal)
CPT/HCPCS: 36415; 80061; 83721

== ENCOUNTER 2022-09-30 13:45 | Emergency (ER) | payer MEDICARE, OTHER ==
--- NOTE | 2022-09-30 13:52 | ED Physician Documentation ---
PD HPI SYNCOPE - Stated complaint Stated Complaint: DIZZINESS,LIGHT HEAD - History obtained from History obtained from: Patient - History of Present Illness Timing - onset: Today (The patient states she felt generally weak and lightheaded but not about to pass out earlier today. Her blood pressure on her home monitor showed 91/55. She took her pressure again shortly after and it was improved to 140/78. No chest pain. HR on home monitor was 70s each time.) Duration: Minutes (The patient had a lightheaded feeling earlier today. She took her blood pressure and noted it to be low but her heart rate was good. [place] bsequently her pressure improved and the lightheaded feeling went away. She denied chest pain, headache, focal weaknesses. No recent illness or change in medicin) Preceding symptoms: Light headed. No: Headache, Chest pain, Nausea / vomiting Associated symptoms: Palpitations (she has frequent PVCs.). No: Headache, Chest pain Contributing factors: No: Recent med change, Decreased PO intake Similar symptoms before: Has not had sx before (She is being evaluated by her disaster response director for frequent PVCs. She has had an echocardiogram and a Zio patch. She is scheduled for heart cath on October 18.) Recently seen: Clinic Review of Systems Constitutional: denies: Fever, Chills Nose: denies: Rhinorrhea / runny nose, Congestion Throat: denies: Sore throat Respiratory: denies: Cough GI: denies: Abdominal Pain, Nausea, Vomiting, Diarrhea Neurologic: reports: Near syncope. denies: Focal weakness, Syncope, Altered mental status PD PAST MEDICAL HISTORY - Past Medical History Cardiovascular: High cholesterol, Arrhythmia (frequent PVCs. ) Respiratory: None Neuro: None - Past Surgical History Past Surgical History: Yes - Present Medications Home Medications: Ambulatory Orders Medication Instructions Recorded Confirmed Simvastatin 20 mg PO HS 04/07/13 09/30/22 Estradiol [Vagifem] 10 mcg VG TID 05/12/19 09/30/22 Multivitamin [Multiple Vitamins] 1 each PO DAILY 05/12/19 09/30/22 Betamethasone Aug 0.05% Cream 0 gm TOP BID 09/30/22 09/30/22 [Diprolene AF 0.05% Cream] Levothyroxine Sodium [Synthroid] 50 mcg PO DAILY 09/30/22 09/30/22 Valacyclovir HCl [Valacyclovir] 500 mg PO BID 09/30/22 09/30/22 - Allergies Allergies/Adverse Reactions: Allergies Allergy/AdvReac Type Severity Reaction Status Date / Time hydrocodone bitartrate * Allergy vomiting Verified 09/21/14 18:33 [From Vicodin] oxycodone Allergy Unknown Verified 05/12/19 08:16 - Social History Does the pt smoke?: No Smoking Status: Never smoker Does the pt drink ETOH?: No Does the pt have substance abuse?: No - Immunizations Immunizations are current?: No Immunizations: TDAP >10years/unknown PD ED PE NORMAL - Vitals Vital signs reviewed: Yes - General General: Alert and oriented X 3, No acute distress, Well developed/nourished - HEENT HEENT: Pharynx benign - Neck Neck: Supple, no meningeal sign, No adenopathy - Cardiac Cardiac: RRR (occasional PVCs.), No murmur - Respiratory Respiratory: Clear bilaterally - Abdomen Abdomen: Soft, Non tender - Derm Derm: Normal color, Warm and dry - Extremities Extremities: No tenderness to palpate, No edema, No calf tenderness / cord - Neuro Neuro: Alert and oriented X 3, No motor deficit, Normal speech Results - Vitals Vitals: Vital Signs - 24 hr 09/30/22 09/30/22 09/30/22 13:58 14:32 14:48 Temperature 36.2 C L Heart Rate 69 62 62 Respiratory 16 18 19 Rate Blood Pressure 147/77 H 117/87 H 117/87 H O2 Saturation 99 97 99 09/30/22 15:32 Temperature Heart Rate 63 Respiratory 16 Rate Blood Pressure 129/68 O2 Saturation 97 Oxygen O2 Source Room air - EKG (time done) 13:54 EKG releavant findings:: EKG personally interpreted by author of this note. Relevant findings are: Rate: Rate (enter#) (62) Rhythm: NSR [place]: Normal Intervals: Normal [place] QRS: Poor R wave progression Ischemia: Normal ST segments. No: ST elevation c/w ischemia, ST depression - Labs Labs: Laboratory Tests 09/30/22 09/30/22 09/30/22 14:05 14:05 14:32 WBC 6.7 RBC 4.89 Hgb 14.6 Hct 45.4 MCV 92.8 MCH 29.9 MCHC 32.2 RDW 13.2 Plt Count 161 MPV 11.2 H Neut # (Auto) 4.6 Lymph # (Auto) 1.5 [place] # (Auto) 0.4 Eos # (Auto) 0.1 Baso # (Auto) 0.0 Absolute Nucleated RBC 0.00 Nucleated RBC % 0.0 Sodium 139 Potassium 3.9 Chloride 103 Carbon Dioxide 29 Anion Gap 7.0 BUN 13 Creatinine 0.7 Estimated GFR (MDRD) 81 L Glucose 88 Calcium 10.1 Magnesium 2.0 Total Bilirubin 0.5 AST 22 ALT 17 Alkaline Phosphatase 54 Troponin I High Sens 2.7 Total Protein 7.1 Albumin 4.5 Globulin 2.6 Albumin/Globulin Ratio 1.7 Lipase 19 - Rads (name of study) chest xray Relevant Findings:: Prelim report reviewed (no acute process), See rad report PD Medical Decision Making - ED course Complexity details: reviewed results, considered differential (Episode of lightheadedness associated with measured mildly low blood pressure of 91/55. Subsequently is feeling better and her blood pressure measured at home and here is good. EKG and troponin are negative without any signs of acute heart injury. Otherwise not ill nor appearing dehydrated.), d/w patient Departure - Departure Disposition: Home, Self Care Clinical Impression: Light-headed feeling, Transient hypotension Condition: Stable Record reviewed to determine appropriate education?: Yes Comments: Your blood pressure here has been normal. Your heart rate is in the normal range. You do have extra beats called PVCs. These had been identified on a recent Zio patch as well, being fairly frequent on your report of that. Your blood count is normal. Your electrolytes and kidney function are good. There is no signs of heart muscle injury/ heart attack by your EKG and by a test called troponin. Your chest x-ray is also clear. At this point it is unclear the cause of your brief lower blood pressure and lightheaded feeling earlier today. It seems to be doing well at this point with normal blood pressure. Continue usual medicines. Continue usual hydration and exercise. Follow-up with your disaster response director as planned with the testing on the . Return if worse symptoms or other concerns.
[2022-09-30 14:43] LABS: BASOPHILS % (AUTO) 0.6 %; EOSINOPHILS # (AUTO) 0.1 10^3/uL (0.0-0.7); EOSINOPHILS % (AUTO) 1.8 %; HCT - HEMATOCRIT 45.4 % (37.0-47.0); HGB - HEMOGLOBIN 14.6 g/dL (12.0-16.0); LYMPHOCYTES # (AUTO) 1.5 10^3/uL (1.5-3.5); LYMPHOCYTES % (AUTO) 22.2 %; MEAN CORPUSCULAR HEMOGLOBIN 29.9 pg (27.0-31.0); MEAN CORPUSCULAR HGB CONC 32.2 g/dL (32.0-36.0); MEAN CORPUSCULAR VOLUME 92.8 fL (81.0-99.0); MEAN PLATELET VOLUME 11.2 fL (7.9-10.8); MONOCYTES # (AUTO) 0.4 10^3/uL (0.0-1.0); MONOCYTES % (AUTO) 6.6 %; NEUTROPHILS # (AUTO) 4.6 10^3/uL (1.5-6.6); NEUTROPHILS % (AUTO) 68.5 %; PLT - PLATELET COUNT 161 10^3/uL (130-450); RED BLOOD COUNT 4.89 10^6/uL (4.20-5.40); RED CELL DISTRIBUTION WIDTH 13.2 % (12.0-15.0); WHITE BLOOD COUNT 6.7 x10^3/uL (4.8-10.8)
--- NOTE | 2022-09-30 14:54 | XRAY Report ---
PROCEDURE: Chest 1 View X-Ray INDICATIONS: Chest Pain TECHNIQUE: One view of the chest was acquired. COMPARISON: 03/18/2022 FINDINGS: Surgical changes and devices: None. Lungs and pleura: No pleural effusions or pneumothorax. Lungs are clear. Mediastinum: Mediastinal contours appear normal. Heart size is normal. Bones and chest wall: No suspicious bony lesions. Overlying soft tissues appear unremarkable. IMPRESSION: No acute cardiopulmonary process. Reviewed by: Onel Leahy MD on 09/30/2022 2:53 PM PDT Approved by: Onel Leahy MD on 09/30/2022 2:53 PM PDT Station ID: [id number]
[2022-09-30 15:19] LABS: ALBUMIN 4.5 g/dL (3.2-5.5); ALBUMIN/GLOBULIN RATIO 1.7 (1.0-2.2); BILIRUBIN,TOTAL 0.5 mg/dL (0.2-1.0); CALCIUM 10.1 mg/dL (8.5-10.3); CREATININE 0.7 mg/dL (0.6-1.3); POTASSIUM 3.9 mmol/L (3.5-4.5); TOTAL PROTEIN 7.1 g/dL (6.4-8.9)
[2022-09-30 15:42] VITALS: BP 129/68
== END 2022-09-30 16:24 | disposition home or self-care (01) ==
LOC: ED 13:45
DX: I95.9 Hypotension, unspecified (principal); I49.3 Ventricular premature depolarization
CPT/HCPCS: 36415; 80053; 83690; 83735; 84484; 85025; 93005; 99283; 99284

== ENCOUNTER 2022-11-15 08:15 | Outpatient (CLI) | payer MEDICARE, OTHER ==
--- NOTE | 2022-11-15 16:49 | DEXA Report ---
PROCEDURE: Dexa Spine and/or Hip INDICATIONS: POST MENOPAUSAL TECHNIQUE: Dual energy x-ray absorptiometry (DXA) was performed on a [employer] System. Regions measur ed are the AP Spine, femoral neck, and if needed forearm. COMPARISON: DEXA 10/24/2020 FINDINGS: Lumbar Spine: Bone Mineral Density at L4 measures 1.48 g/cm/cm,T score 2.3, compared to 2.7. Left Femoral Neck: Bone Mineral Density 0.951 g/cm/cm, T score -0.6, compared to -0.8. Left Hip: Bone Mineral Density 0.899 g/cm/cm,T score -0.9 compared to -0.8. Left Forearm: Bone Mineral Density 0.646 g/cm/cm, T score -2.6, no priors. 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 Patients with diagnosis of osteoporosis or osteopenia should have regular bone mineral density assess ment. For those eligible for Medicare, routine testing is allowed once every 2 years. Testing frequ ency can be increased for patients who have rapidly progressing disease or for those who are receivin g medical therapy to restore bone mass. Reviewed by: Maeve Olvera MD on 11/15/2022 4:48 PM PDT Approved by: Maeve Olvera MD on 11/15/2022 4:48 PM PDT Station ID: [id number]
== END 2022-11-15 08:16 | disposition home or self-care (01) ==
LOC: DI 08:15
PROVIDERS: ATTEND Registered Nurse
DX: Z78.0 Asymptomatic menopausal state (principal); M81.0 Age-related osteoporosis without current pathological fracture

== ENCOUNTER 2022-12-11 08:27 | Emergency (ER) | payer MEDICARE, OTHER ==
[2022-12-11 08:42] VITALS: BP 140/65; O2SAT 98
--- NOTE | 2022-12-11 09:04 | ED Physician Documentation ---
PD HPI HEENT - Stated complaint Stated Complaint: SORE UNDER TONGUE - Chief complaint Chief Complaint: Heent - History obtained from History obtained from: Patient - History of Present Illness Timing - onset: How many days ago (2) Timing - duration: Days (2) Timing - details: Gradual onset, Still present Location: Other (tongue) Improves: Nothing Worsens: Other (eating) Associated symptoms: No: Fever, Congestion, Rhinorrhea, Trismus, Unable to swallow, Swollen nodes, Facial swelling, Headache, Cough Similar symptoms before: Diagnosis (apthus ulcers) Recently seen: Other (2 wks ago for UTI) - Additional information Additional information: Enedina Richardson is a young 82-year-old female who comes to the emergency department this morning with a 2-day history of tiny sores under her tongue. She is concerned about this because she has had similar things previously that of usually responded to Anusol usually on her buccal mucosa and she has recently taken some fosfomycin for urinary tract infection. She does have a dental appliance in place. She is describing a new relationship with an 80-year-old male and stress in her life. Review of Systems Constitutional: denies: Fever, Chills, Myalgias, Fatigue, Weight Loss Eyes: denies: Decreased vision Ears: denies: Ear pain Nose: denies: Rhinorrhea / runny nose, Congestion Throat: reports: Oral lesions / sores. denies: Sore throat, Swollen tonsils Cardiac: denies: Chest pain / pressure Respiratory: denies: Dyspnea, Cough GI: denies: Nausea, Vomiting, Constipation, Diarrhea : denies: Dysuria, Frequency Skin: denies: Rash Musculoskeletal: denies: Neck pain, Back pain, Extremity pain Neurologic: denies: Generalized weakness, Focal weakness, Numbness PD PAST MEDICAL HISTORY - Past Medical History Past Medical History: Yes Cardiovascular: High cholesterol, Arrhythmia Respiratory: None Neuro: None Endocrine/Autoimmune: HyPOthyroidism GI: None ELEVATORS INSPECTOR: None : None HEENT: None Psych: None Musculoskeletal: None Derm: None - Past Surgical History Past Surgical History: Yes - Present Medications Home Medications: Ambulatory Orders Medication Instructions Recorded Confirmed Simvastatin 20 mg PO HS 04/07/13 12/11/22 Estradiol [Vagifem] 10 mcg VG ONCE 05/12/19 12/11/22 Multivitamin [Multiple Vitamins] 1 each PO DAILY 05/12/19 12/11/22 Betamethasone Aug 0.05% Cream 0 gm TOP BID 09/30/22 12/11/22 [Diprolene AF 0.05% Cream] Levothyroxine Sodium [Synthroid] 50 mcg PO DAILY 09/30/22 12/11/22 Valacyclovir HCl [Valacyclovir] 500 mg PO BID 09/30/22 12/11/22 Cholecalciferol (Vitamin D3) 50 mcg PO DAILY 12/11/22 12/11/22 [Vitamin D3] Magic Mouthwash 5 ml PO Q4H #120 ml 12/11/22 Vitamin B Complex Vit C No.3 [B 1 each PO DAILY 12/11/22 12/11/22 Complex with Vitamin C] - Allergies Allergies/Adverse Reactions: Allergies Allergy/AdvReac Type Severity Reaction Status Date / Time hydrocodone bitartrate * Allergy vomiting Verified 12/11/22 08:35 [From Vicodin] oxycodone Allergy Unknown Verified 12/11/22 08:35 - Social History Does the pt smoke?: No Smoking Status: Never smoker Does the pt drink ETOH?: No Does the pt have substance abuse?: No - Immunizations Immunizations are current?: Yes Immunizations: TDAP >10years/unknown - POLST Patient has POLST: No PD ED PE NORMAL - Vitals Vital signs reviewed: Yes (normal ) - General General: Alert and oriented X 3, No acute distress, Well developed/nourished, Other (82-year-old female appearing much younger than her stated age.) - HEENT HEENT: Atraumatic, PERRL, EOMI, Other (Under the tongue on both sides there are some swollen papilla about 1 mm in size. Consistent with irritation or superficial infection. She does have dental appliance in place on the ) - Respiratory Respiratory: No respiratory distress - Derm Derm: Normal color, Warm and dry, No rash - Extremities Extremities: No deformity, No edema - Neuro Neuro: Alert and oriented X 3, cherry grower 2-12 intact, No motor deficit, No sensory deficit, Normal speech Eye Opening: Spontaneous Motor: Obeys Commands Verbal: Oriented GCS Score: 15 - Psych Psych: Normal mood, Normal affect Results - Vitals Vitals: Vital Signs - 24 hr 12/11/22 08:35 Temperature 36.3 C L Heart Rate 66 Respiratory 16 Rate Blood Pressure 140/65 H O2 Saturation 98 Oxygen O2 Source Room air PD Medical Decision Making - ED course Complexity details: considered differential, d/w patient ED course: 82-year-old female with some tiny sores under her tongue consistent with a superficial papillary irritation or infection. We will place the patient on some mouthwash with antibiotic. Departure - Departure Disposition: 01 Home, Self Care Clinical Impression: Tongue sore Instructions: ED Canker Sore Follow-Up: SAMI DALY ARNP [Primary Care Provider] - Prescriptions: Magic Mouthwash 5 ml PO Q4H #120 ml Comments: Enedina, today it looks like you have an inflammation of the papilla of your tongue and this is likely related to stress and may be related to your dental appliance. I have E scribed some Magic mouthwash to the [facility] in [place]. Use this to swish in your mouth and spit out or swallow for the next 2 to 3 days and expect improvement with each use. Forms: PCP List
== END 2022-12-11 10:12 | disposition home or self-care (01) ==
LOC: ED 08:27
DX: K13.79 Other lesions of oral mucosa (principal)
CPT/HCPCS: 99282; 99283

== ENCOUNTER 2023-01-11 14:00 | Outpatient (CLI) | payer MEDICARE, OTHER ==
[2023-01-11 14:16] LABS: BILIRUBIN,URINE NEGATIVE (NEGATIVE); GLUCOSE, URINE (UA) NEGATIVE (NEGATIVE); KETONES,URINE (UA) NEGATIVE (NEGATIVE); LEUKOCYTE ESTERASE, URINE TRACE (NEGATIVE); NITRITE,URINE NEGATIVE (NEGATIVE); OCCULT BLOOD,URINE TRACE-INTA (NEGATIVE); PH,URINE 6.5 PH (5.0-7.5); PROTEIN,URINE NEGATIVE (NEGATIVE); UROBILINOGEN,URINE 0.2 (NORMAL) E.U./dL (NORMAL)
[2023-01-11 14:22] LABS: CLARITY,URINE HAZY (CLEAR)
[2023-01-11 14:37] LABS: BACTERIA,URINE Few /HPF (None Seen); RBC,URINE 0-5 /HPF (0-5); SQUAMOUS EPITHELIAL CELL,UR FEW Squamous (<= Few)
== END 2023-01-11 14:01 | disposition home or self-care (01) ==
LOC: LAB 14:00
PROVIDERS: ATTEND Registered Nurse
DX: R35.0 Frequency of micturition (principal)
CPT/HCPCS: 81001; 81003; 87086; 87181

== ENCOUNTER 2023-02-16 09:12 | Outpatient (CLI) | payer MEDICARE, OTHER ==
[2023-02-16 09:54] LABS: CHOLESTEROL 208 mg/dL; HDL CHOLESTEROL 102 mg/dL; LDL CHOLESTEROL,CALCULATED 91 mg/dL; LDL/HDL RATIO 0.9 (<4.4); TRIGLYCERIDES 75 mg/dL (48-352); VLDL CHOLESTEROL 15 mg/dL
== END 2023-02-16 09:13 | disposition home or self-care (01) ==
LOC: LAB 09:12
PROVIDERS: ATTEND Internal Medicine Cardiovascular Disease
DX: R07.9 Chest pain, unspecified (principal)
CPT/HCPCS: 36415; 80061; 83721

== ENCOUNTER 2023-05-04 07:42 | Emergency (ER) | payer MEDICARE, OTHER ==
--- NOTE | 2023-05-04 08:22 | XRAY Report ---
PROCEDURE: Chest 1V INDICATIONS: cough TECHNIQUE: One view of the chest was acquired. COMPARISON: 09/30/2022. FINDINGS: Surgical changes and devices: None. Lungs and pleura: No pleural effusions or pneumothorax. Lungs are clear. Mediastinum: Mediastinal contours appear normal. Heart size is normal. Bones and chest wall: No suspicious bony lesions. Overlying soft tissues appear unremarkable. IMPRESSION: No acute cardiopulmonary process. Reviewed by: Onel Leahy MD on 05/04/2023 8:21 AM PST Approved by: Onel Leahy MD on 05/04/2023 8:21 AM PST Station ID: [id number]
[2023-05-04] MEDS: ONDANSETRON ODT 4 MG TABLET TL STA (08:27)
[2023-05-04] MEDS: IBUPROFEN 600 MG TABLET PO STA (08:32)
[2023-05-04] MEDS: ACETAMINOPHEN 325 MG TABLET PO STA (08:32)
[2023-05-04 09:01] LABS: RAPID STREP SCREEN Negative (Negative)
[2023-05-04 09:06] LABS: CORONAVIRUS 229E-RESP PCR NOT DETECTED
[2023-05-04 09:07] LABS: B. PARAPERTUSSIS- RESP PCR PAN NOT DETECTED; B. PERTUSSIS- RESP PCR PANEL NOT DETECTED; C. PNEUMONIAE- RESP PCR PANEL NOT DETECTED; CORONAVIRUS HKU1-RESP PCR NOT DETECTED; CORONAVIRUS NL63-RESP PCR NOT DETECTED; CORONAVIRUS OC43-RESP PCR NOT DETECTED; HUMAN METAPNEUMOVIRUS NOT DETECTED; INFLUENZA A- RESP PCR PANEL NOT DETECTED; INFLUENZA B - RESP PCR PANEL NOT DETECTED; M. PNEUMONIAE- RESP PCR PANEL NOT DETECTED; PARAINFLUENZA VIRUS 1 NOT DETECTED; PARAINFLUENZA VIRUS 2 NOT DETECTED; PARAINFLUENZA VIRUS 3 NOT DETECTED; PARAINFLUENZA VIRUS 4 NOT DETECTED; RHINOVIRUS/ENTEROVIRUS NOT DETECTED; RSV- RESP PCR PANEL NOT DETECTED
[2023-05-04 09:09] LABS: SARS-CoV-2 -RESP PCR PANEL DETECTED
--- NOTE | 2023-05-04 09:17 | ED Physician Documentation ---
PD HPI URI - Stated complaint Stated Complaint: CONGESTION/FEVER/STOMACH PX - Chief complaint Chief Complaint: General - History obtained from History obtained from: Patient - Additional information Additional information: Patient is an 83-year-old female presenting for evaluation of Nonproductive cough, nasal congestion, nausea and headache. Patient states that her dry cough and congestion have been ongoing for the past several weeks but that yesterday she felt like she was coming down with a fever but did not actually have a fever when she checked along with having a headache and nausea. She has not taken any medications for her symptoms today. 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 No chest pain or shortness of air. She is tolerating p.o. No vomiting, diarrhea or dysuria.Denies recent travel. Review of Systems Constitutional: reports: Chills. denies: Fever Nose: reports: Congestion Cardiac: denies: Chest pain / pressure Respiratory: reports: Cough GI: reports: Nausea. denies: Vomiting PD PAST MEDICAL HISTORY - Past Medical History Past Medical History: Yes Cardiovascular: High cholesterol, Arrhythmia Respiratory: None Neuro: None Endocrine/Autoimmune: HyPOthyroidism GI: None FAMILY SERVICES SPECIALIST: None : None HEENT: None Psych: None Musculoskeletal: None Derm: None - Past Surgical History Past Surgical History: Yes - Present Medications Home Medications: Ambulatory Orders Medication Instructions Recorded Confirmed Simvastatin 20 mg PO HS 04/07/13 05/04/23 Estradiol [Vagifem] 10 mcg VG ONCE 05/12/19 05/04/23 Multivitamin [Multiple Vitamins] 1 each PO DAILY 05/12/19 05/04/23 Betamethasone Aug 0.05% Cream 0 gm TOP BID 09/30/22 12/11/22 [Diprolene AF 0.05% Cream] Levothyroxine Sodium [Synthroid] 50 mcg PO DAILY 09/30/22 05/04/23 Valacyclovir HCl [Valacyclovir] 500 mg PO BID 09/30/22 05/04/23 Cholecalciferol (Vitamin D3) 50 mcg PO DAILY 12/11/22 05/04/23 [Vitamin D3] Magic Mouthwash 5 ml PO Q4H #120 ml 12/11/22 Vitamin B Complex Vit C No.3 [B 1 each PO DAILY 12/11/22 05/04/23 Complex with Vitamin C] Fluticasone [Flonase] 1 sprays JUAN J BID PRN 05/04/23 05/04/23 Nirmatrelvir/Ritonavir [Paxlovid 1 each PO BID 5 Days #1 each 05/04/23 300-100 mg Dose Pack] Omeprazole 20 mg PO DAILY 05/04/23 05/04/23 Ondansetron Odt [Zofran] 4 mg TL Q6H PRN #10 tablet 05/04/23 Zinc Sulfate 1 cap PO DAILY 05/04/23 05/04/23 - Allergies Allergies/Adverse Reactions: Allergies Allergy/AdvReac Type Severity Reaction Status Date / Time hydrocodone bitartrate * Allergy vomiting Verified 05/04/23 07:51 [From Vicodin] oxycodone Allergy Unknown Verified 05/04/23 07:51 - Social History Does the pt smoke?: No Smoking Status: Never smoker Does the pt drink ETOH?: No Does the pt have substance abuse?: No - Immunizations Immunizations are current?: Yes Immunizations: TDAP >10years/unknown - POLST Patient has POLST: No PD ED PE NORMAL - General General: Alert and oriented X 3, No acute distress, Well developed/nourished - HEENT HEENT: Atraumatic, Moist mucous membranes, Pharynx benign - Neck Neck: Supple, no meningeal sign - Cardiac Cardiac: RRR, Strong equal pulses - Respiratory Respiratory: No respiratory distress, Clear bilaterally - Abdomen Abdomen: Normal bowel sounds, Soft, Non tender, Non distended - Derm Derm: Warm and dry - Neuro Neuro: Alert and oriented X 3, No motor deficit, No sensory deficit, Normal speech Results - Vitals Vitals: Vital Signs - 24 hr 05/04/23 05/04/23 07:49 09:34 Temperature 36.4 C L 37.1 C Heart Rate 92 74 Respiratory 18 18 Rate Blood Pressure 131/65 H 108/64 O2 Saturation 97 96 Oxygen O2 Source Room air - Labs Labs: Laboratory Tests 05/04/23 05/04/23 07:54 08:20 Nasal Adenovirus (PCR) NOT DETECTED Nasal B. parapertussis DNA (PCR) NOT DETECTED Nasal Coronavir 229E PCR NOT DETECTED Nasal Coronavir HKU1 PCR NOT DETECTED Nasal Coronavir NL63 PCR NOT DETECTED Nasal Coronavir OC43 PCR NOT DETECTED Nasal Enterovir/Rhinovir PCR NOT DETECTED Nasal Influenza B PCR NOT DETECTED Nasal Influenza A PCR NOT DETECTED Nasal Parainfluen 1 PCR NOT DETECTED Nasal Parainfluen 2 PCR NOT DETECTED Nasal Parainfluen 3 PCR NOT DETECTED Nasal Parainfluen 4 PCR NOT DETECTED Nasal RSV (PCR) NOT DETECTED Nasal B.pertussis DNA PCR NOT DETECTED Nasal C.pneumoniae (PCR) NOT DETECTED Juan J Human Metapneumo PCR NOT DETECTED Nasal M.pneumoniae (PCR) NOT DETECTED Nasal SARS-CoV-2 (PCR) DETECTED A Group A Strep Rapid Negative PD Medical Decision Making - ED course Complexity details: reviewed results, d/w patient ED course: Patient is an 83-year-old female presenting for evaluation of recent URI symptoms. Also reported having headache and nausea starting yesterday. Normal neuroexam. She is quite well-appearing, tolerating bright lights, ambulating and easily conversant. Does not take any blood thinners. No reported trauma. Do not think emergent neuroimaging is indicated at this time. Lung sounds are clear. Chest x-ray which I reviewed is negative for consolidation to suggest pneumonia. Strep test is negative. Respiratory swab is positive for COVID. I did review this with the patient and she is also interested in taking Paxlovid. Reviewed the intention of the medication as well as possible side effects and she still would like to proceed. She is on a statin so she understands she needs to hold this medication while on Paxlovid as well as for 5 days after. The rest of her medications were also reviewed I see no other contraindications. Patient has no history of kidney disease and her renal labs from last year show creatinine well within normal range. No history to suggest that she would have impairment today. Prescription for Paxlovid and Zofran were provided to the patient. She is counseled on need for quarantine as well as concerning symptoms to return for. Departure - Departure Disposition: 01 Home, Self Care Clinical Impression: COVID-19 Condition: Stable Instructions: ED Viral Syndrome Prescriptions: Nirmatrelvir/Ritonavir [Paxlovid 300-100 mg Dose Pack] 1 each PO BID 5 Days #1 each Ondansetron Odt [Zofran] 4 mg TL Q6H PRN #10 tablet PRN Reason: Nausea / Vomiting Comments: You have tested positive for COVID-19. Please quarantine per CDC guidelines. I have sent a prescription for Paxlovid which is an antiviral treatment used with COVID to the [facility] pharmacy. - You should not take simvastatin while you are taking Paxlovid and you should also not take it for 5 days after completing Paxlovid--> DO NOT TAKE FOR THE NEXT 10 DAYS. You can continue your valacyclovir and levothyroxine. I have also sent a prescription for an antinausea medication. Return to the ER with any worsening symptoms such as labored breathing, vomiting or any other concerns. Forms: PCP List Discharge Date/Time: 05/04/23 09:37
[2023-05-04 09:37] VITALS: BP 108/64; O2SAT 96
== END 2023-05-04 09:37 | disposition home or self-care (01) ==
LOC: ED 07:42
DX: U07.1 COVID-19 (principal); E78.00 Pure hypercholesterolemia, unspecified; Z79.899 Other long term (current) drug therapy
CPT/HCPCS: 71045; 87070; 87430; 87633; 99284; A9270; Q0162

== ENCOUNTER 2023-05-06 10:59 | Emergency (ER) | payer MEDICARE, OTHER ==
[2023-05-06 11:29] VITALS: BP 122/61; O2SAT 97
--- NOTE | 2023-05-06 12:16 | ED Physician Documentation ---
History of Present Illness - Stated complaint Stated Complaint: LIP LAC, C+ - Chief complaint Chief Complaint: Laceration - History obtained from History obtained from: Patient - History of Present Illness Timing: Today Pain level max: 0 Pain level now: 0 - Additonal information Additional information: Patient is an 83-year-old female who presents to the emergency department after a ground-level fall today. Struck her upper lip on the ground. No dental injury. No headache. No neck pain. No facial pain. No nasal pain. Has a laceration to the inner upper lip. Tetanus up-to-date. Not on blood thinners. No loss of consciousness. No injury to any other major joints. Not actively bleeding at this time. Review of Systems Constitutional: denies: Fever, Chills Respiratory: denies: Cough GI: denies: Nausea, Vomiting, Diarrhea : denies: Dysuria Skin: denies: Rash Musculoskeletal: denies: Neck pain, Back pain Neurologic: denies: Headache PD PAST MEDICAL HISTORY - Past Medical History Cardiovascular: High cholesterol, Arrhythmia Respiratory: None Neuro: None Endocrine/Autoimmune: HyPOthyroidism GI: None NATIONAL SALES EXECUTIVE: None : None HEENT: None Psych: None Musculoskeletal: None Derm: None - Past Surgical History Past Surgical History: Yes - Present Medications Home Medications: Ambulatory Orders Medication Instructions Recorded Confirmed Simvastatin 20 mg PO HS 04/07/13 05/06/23 Estradiol [Vagifem] 10 mcg VG ONCE 05/12/19 05/06/23 Multivitamin [Multiple Vitamins] 1 each PO DAILY 05/12/19 05/06/23 Betamethasone Aug 0.05% Cream 0 gm TOP BID 09/30/22 05/06/23 [Diprolene AF 0.05% Cream] Levothyroxine Sodium [Synthroid] 50 mcg PO DAILY 09/30/22 05/06/23 Valacyclovir HCl [Valacyclovir] 500 mg PO BID 09/30/22 05/06/23 Cholecalciferol (Vitamin D3) 50 mcg PO DAILY 12/11/22 05/06/23 [Vitamin D3] Magic Mouthwash 5 ml PO Q4H #120 ml 12/11/22 05/06/23 Vitamin B Complex Vit C No.3 [B 1 each PO DAILY 12/11/22 05/06/23 Complex with Vitamin C] Fluticasone [Flonase] 1 sprays JUAN J BID PRN 02/28/24 03/01/24 Nirmatrelvir/Ritonavir [Paxlovid 1 each PO BID 5 Days #1 each 05/04/23 05/06/23 300-100 mg Dose Pack] Omeprazole 20 mg PO DAILY 05/04/23 05/06/23 Ondansetron Odt [Zofran] 4 mg TL Q6H PRN #10 tablet 05/04/23 05/06/23 Zinc Sulfate 1 cap PO DAILY 05/04/23 05/06/23 - Allergies Allergies/Adverse Reactions: Allergies Allergy/AdvReac Type Severity Reaction Status Date / Time hydrocodone bitartrate * Allergy vomiting Verified 05/06/23 12:20 [From Vicodin] oxycodone Allergy Unknown Verified 05/06/23 12:20 - Social History Does the pt smoke?: No Smoking Status: Never smoker Does the pt drink ETOH?: No Does the pt have substance abuse?: No - Immunizations Immunizations are current?: Yes Immunizations: TDAP >10years/unknown - POLST Patient has POLST: No PD ED PE NORMAL - Vitals Vital signs reviewed: Yes - General General: Alert and oriented X 3, No acute distress - HEENT HEENT: Atraumatic (No scalp hematomas. No palpable skull fractures. No bony tenderness across the face.), PERRL, Moist mucous membranes, Other (No dental injury. There is a linear laceration to the inner aspect of the upper lip. Not through and through. Not actively bleeding. Approximately 1.5 cm.) - Neck Neck: Supple, no meningeal sign - Cardiac Cardiac: RRR, Strong equal pulses - Respiratory Respiratory: No respiratory distress, Clear bilaterally - Abdomen Abdomen: Soft, Non tender, Non distended - Derm Derm: Warm and dry - Extremities Extremities: Normal ROM s pain - Neuro Neuro: Alert and oriented X 3, computer game tester 2-12 intact, No motor deficit, No sensory deficit, Normal speech Eye Opening: Spontaneous Motor: Obeys Commands Verbal: Oriented GCS Score: 15 - Psych Psych: Normal mood, Normal affect Results - Vitals Vitals: Vital Signs - 24 hr 05/06/23 11:24 Temperature 36.8 C Heart Rate 75 Respiratory 18 Rate Blood Pressure 122/61 O2 Saturation 97 Oxygen O2 Source Room air PD Medical Decision Making - ED course Complexity details: considered differential, d/w patient ED course: 83-year-old female status post ground-level fall. Has a laceration to the inner aspect of the upper lip. No indication for repair at this time. Recommend liquid diet. Ice cubes/popsicles. Keep the wound clean. No other acute injuries. Tetanus up-to-date. Head injury instructions given at bedside. Patient counseled regarding signs and symptoms for which I believe and urgent re-evaluation would be necessary. Patient with good understanding of and agreement to plan and is comfortable going home at this time This document was made in part using voice recognition software. While efforts are made to proofread this document, sound alike and grammatical errors may occur. Departure - Departure Disposition: 01 Home, Self Care Clinical Impression: Lip laceration Qualifiers: Encounter type: initial encounter Qualified Code(s): S01.511A - Laceration without foreign body of lip, initial encounter Condition: Good Instructions: ED Laceration Mouth Follow-Up: SAMI DALY ARNP [Primary Care Provider] - Comments: I would recommend a liquid diet for the next 24 hours. Cool items such as popsicles may help as well. Please make sure no food gets caught in the wound. This should heal within 2 to 3 days. Please return if you worsen. Please return for headaches, vomiting or other new or worrisome symptoms. Forms: PCP List Discharge Date/Time: 05/06/23 12:21
== END 2023-05-06 12:21 | disposition home or self-care (01) ==
LOC: ED 10:59
DX: S01.511A Laceration without foreign body of lip, initial encounter (principal); W18.30XA Fall on same level, unspecified, initial encounter; E78.00 Pure hypercholesterolemia, unspecified; E03.9 Hypothyroidism, unspecified; Z79.899 Other long term (current) drug therapy
CPT/HCPCS: 99281; 99283

== ENCOUNTER 2023-06-21 16:55 | Outpatient (CLI) | payer MEDICARE, OTHER ==
[2023-06-21 17:15] LABS: BILIRUBIN,URINE NEGATIVE (NEGATIVE); GLUCOSE, URINE (UA) NEGATIVE (NEGATIVE); KETONES,URINE (UA) NEGATIVE (NEGATIVE); LEUKOCYTE ESTERASE, URINE NEGATIVE (NEGATIVE); NITRITE,URINE NEGATIVE (NEGATIVE); OCCULT BLOOD,URINE TRACE-INTA (NEGATIVE); PH,URINE 6.5 PH (5.0-7.5); PROTEIN,URINE NEGATIVE (NEGATIVE); UROBILINOGEN,URINE 0.2 (NORMAL) E.U./dL (NORMAL)
[2023-06-21 17:17] LABS: CLARITY,URINE CLEAR (CLEAR)
[2023-06-21 18:11] LABS: BACTERIA,URINE Few /HPF (None Seen); RBC,URINE None Seen /HPF (0-5); SQUAMOUS EPITHELIAL CELL,UR FEW Squamous (<= Few); WBC,URINE 0-3 /HPF (0-5)
== END 2023-06-21 16:56 | disposition home or self-care (01) ==
LOC: LAB 16:55
PROVIDERS: ATTEND Obstetrics & Gynecology
DX: R30.0 Dysuria (principal)
CPT/HCPCS: 81001; 87086